=== PATIENT | female | born 1965 | race Caucasian/White ===

== ENCOUNTER 2016-09-03 05:54 | Inpatient (IN) | payer BC ==
[~2016-09-03 05:54] MED LIST: ADDERALL 10 MG10 M2 PO; ADDERALL XR 2020 M1 PO; BACLOFEN10 M1 PO; CLARITIN-D 241 EAC2 PO; CYPROHEPTADINE H4 M1 PO; GUMMI BEAR MUL1 EAC1 PO; KLONOPIN1 M1 PO; LEXAPRO10 M2 PO; MAXALT MLT10 MG PO; NEURONTIN300 M1 PO; OMEPRAZOLE40 M2 PO; PRINIVIL10 M1 PO; TYLENOL EXTRA500 M1 PO; VITAMIN D2000 UNI1 PO; WELLBUTRIN XL300 M3 PO; ZOFRAN8 M1 PO
[2016-09-05 04:56] LABS: BASO % 0.2 % (0-2); EOSINOPHIL ABSOLUTE COUNT 0.1 tho/cmm (0.0-0.7); HCT-HEMATOCRIT 31.2 % (34.0-49.0); HGB-HEMOGLOBIN 10.1 gm/dl (12.0-15.5); IMMATURE GRANULOCYTES ABSOLUTE 0.01 tho/cmm (0-0.03); IMMATURE GRANULOCYTES PERCENT 0.2 % (0-0.3); LYMPH % 38.5 % (20-45); LYMPH ABSOLUTE COUNT 2.2 tho/cmm (0.8-4.5); MCH (MEAN CORPUSCULAR HGB) 29.7 pg (28.0-32.0); MCHC MEAN CORPUSCULAR HGB CONC 32.4 % (32.0-36.0); MCV (MEAN CELL VOLUME) 91.8 fl (82.0-96.0); MONO % 9.6 % (0-12); MONOCYTE ABSOLUTE COUNT 0.6 tho/cmm (0.0-1.2); NEUTROPHIL ABSOLUTE COUNT 2.9 tho/cmm (1.6-8.0); NEUTROPHIL-AUTOMATED 2.9 tho/cmm (1.6-8.0); NEUTROPHILS % 50.5 % (40-80); PLATELET COUNT 254 tho/cmm (150-450); RED CELL DISTRIBUTION WIDTH 13.1 % (12.4-16.4); WHITE BLOOD COUNT 5.7 tho/cmm (4.0-10.0)
[2016-09-05 05:21] LABS: ANION GAP 11 mmol/L (0-20); BLOOD UREA NITROGEN 6 mg/dl (6-24); CARBON DIOXIDE-VENOUS 29 mmol/L (22-32); CHLORIDE 108 mmol/l (96-110); CREATININE 0.65 mg/dl (0.50-1.10); GLUCOSE 94 mg/dL (70-110); POTASSIUM 3.8 mmol/L (3.7-5.1); SODIUM 144 mmol/L (135-145); eGFR VALUE FOR BLACK >60 mL/Min
[2016-09-05] MEDS ORDERED: LORTAB 5-325 M1 EAC1 PO (10:55)
[2016-09-05] MEDS ORDERED: CELEBREX200 M1 PO (10:56)
[2016-09-05] MEDS ORDERED: STOP THE FOLLOWING (10:57)
== END 2016-09-05 11:45 | DRG 583 ==
LOC: SHSC 05:54 → ORW 09:01 → PACU 13:01 → 5WD 17:50
PROVIDERS: Registered Nurse; ADMIT Specialist
PROC: 0HTV0ZZ Resection of Bilateral Breast, Open Approach (ICD-10-PCS; principal; 2016-09-03)
DX: D05.92 Unspecified type of carcinoma in situ of left breast (principal); G35 Multiple sclerosis; F32.9 Major depressive disorder, single episode, unspecified; D05.91 Unspecified type of carcinoma in situ of right breast; F41.9 Anxiety disorder, unspecified
CPT/HCPCS: A9541; G8978-GP-CI; G8979-GP-CI; G8980-GP-CI; J0131; J0690; J1170; J2270; J2405; J2765; Q9968